=== PATIENT | female | born 2000 | race American Indian/Alaskan Native ===

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

== ENCOUNTER 2021-12-27 00:23 | Emergency (ER) | payer OTHER ==
[2021-12-27 00:42] VITALS: BP 139/93; PULSE 110
[2021-12-27 01:56] LABS: ANION GAP 17.2 mEq/L (7-13); CHLORIDE,CL 101 mmol/L (98-107); SODIUM,NA 138 mmol/L (136-145)
[2021-12-27 02:54] LABS: AMPHETAMINES,URINE NEGATIVE (NEGATIVE); BARBITURATES,URINE NEGATIVE (NEGATIVE); BENZODIAZEPINE,URINE NEGATIVE (NEGATIVE); MDMA (ECSTASY), URINE NEGATIVE (NEGATIVE); METHADONE,URINE NEGATIVE (NEGATIVE); METHAMPHETAMINES,URINE NEGATIVE (NEGATIVE); OPIATES,URINE NEGATIVE (NEGATIVE); OXYCODONE,URINE NEGATIVE (NEGATIVE); PHENCYCLIDINE,URINE NEGATIVE (NEGATIVE); TCA,URINE NEGATIVE (NEGATIVE)
== END 2021-12-27 02:00 | disposition home or self-care (01) ==
LOC: DL.ED 00:23
DX: O99.281 Endocrine, nutritional and metabolic diseases complicating pregnancy, first trimester (principal); E87.6 Hypokalemia; Z3A.01 Less than 8 weeks gestation of pregnancy
CPT/HCPCS: 36415; 80053; 80305-QW; 80307; 81003; 84703; 85025; 86592; 86762; 86803; 86850; 86900; 86901; 87340; 87389; 99283; 99284

== ENCOUNTER 2022-01-29 00:34 | Emergency (ER) | payer MEDICAID, OTHER ==
[2022-01-29 01:09] VITALS: BP 118/78; PULSE 102
[2022-01-29 01:21] LABS: ANION GAP 12.6 mEq/L (7-13); CHLORIDE,CL 100 mmol/L (98-107); SODIUM,NA 134 mmol/L (136-145)
[2022-01-29 01:31] LABS: CORONAVIRUS COVID-19 NAA NEGATIVE (NEGATIVE)
== END 2022-01-29 01:53 | disposition home or self-care (01) ==
LOC: DL.ED 00:34
DX: O99.512 Diseases of the respiratory system complicating pregnancy, second trimester (principal); J06.9 Acute upper respiratory infection, unspecified; Z87.891 Personal history of nicotine dependence; Z3A.20 20 weeks gestation of pregnancy; Z20.822 Contact with and (suspected) exposure to COVID-19
CPT/HCPCS: 0240U; 36415; 80053; 84443; 85027; 86308; 99283

== ENCOUNTER 2022-04-22 00:03 | Inpatient (IN) | payer MEDICAID, OTHER ==
[~2022-04-22 00:03] MED LIST: Acetaminophen 325 MG Tab PO PRN; Carboprost Tromethamine 250 MCG/1 ML Amp IM PRN; Lactated Ringers 1,000 ML IV ONE; Lactated Ringers 1,000 ML IV SCH; Lidocaine 1% 30 ML SDV INJECT PRN; Methylergonovine 0.2 MG/1 ML Amp IM PRN; Misoprostol 25 MCG (1/4 of 100 MCG) Tab VAG PRN; Misoprostol 400 MCG (4 X 100 MCG TAB) RECTAL PRN; Misoprostol 50 MCG (1/2 of 100 MCG) Tab VAG ONE; Ondansetron 4 MG/2 ML SDV IVPUSH PRN; Oxytocin/Normal Saline 30 UNIT/500 ML BAG IV SCH; Sodium Chloride 0.9% 10 ML Syringe FLUSH PRN; Tranexamic Acid 1,000 MG in Sodium Chloride 0.9% 100 ML IV PRN
[2022-04-22] MEDS: Sodium Chloride 0.9% 10 ML Syringe FLUSH SCH ×3 (01:43→23:05)
[2022-04-22] MEDS ORDERED: fentaNYL 100 MCG/2 ML SDV ONE (07:34)
[2022-04-22] MEDS ORDERED: fentaNYL 100 MCG/2 ML SDV IVPUSH STA (07:40)
[2022-04-22] MEDS: Lactated Ringers 1,000 ML IV SCH ×2 (08:30→11:30)
[2022-04-22] MEDS ORDERED: Zolpidem 5 MG Tab PO PRN (11:19)
[2022-04-22] MEDS ORDERED: Oxytocin 10 Units/1 ML SDV IM PRN (11:19)
[2022-04-22] MEDS ORDERED: Simethicone 80 MG Tab.Chew PO PRN (11:19)
[2022-04-22] MEDS ORDERED: Sodium Chloride 0.9% 10 ML Syringe FLUSH PRN (11:19)
[2022-04-22] MEDS ORDERED: Benzocaine/Menthol 20%-0.5% Spray 78 GM Cannister TOP PRN (11:19)
[2022-04-22] MEDS: Ibuprofen 800 MG Tab PO PRN (17:24)
[2022-04-22] MEDS: Docusate Sodium 100 MG Cap PO PRN (20:56)
[2022-04-23] MEDS: Ferrous Sulfate 325 MG Tab PO SCH (17:11)
[2022-04-23] MEDS: Docusate Sodium 100 MG Cap PO PRN (17:12)
[2022-04-23] MEDS: Ibuprofen 800 MG Tab PO PRN (17:12)
[2022-04-23] MEDS: Prenatal Multivitamin with Calcium/Folic Acid/Iron Tab PO SCH (17:12)
[2022-04-23] MEDS: Sodium Chloride 0.9% 10 ML Syringe FLUSH SCH (18:04)
[2022-04-24] MEDS: Docusate Sodium 100 MG Cap PO PRN (09:27)
[2022-04-24] MEDS: Ferrous Sulfate 325 MG Tab PO SCH (09:27)
[2022-04-24] MEDS: Prenatal Multivitamin with Calcium/Folic Acid/Iron Tab PO SCH (09:27)
[2022-04-24] MEDS: Ibuprofen 800 MG Tab PO PRN (09:27)
[2022-04-24 09:43] VITALS: BP 124/78; PULSE 86
[2022-04-24] MEDS ORDERED: Morphine PF 1 MG/ML Amp ITHECAL ONE (11:44)
== END 2022-04-24 11:45 | disposition home or self-care (01) | DRG 806 ==
LOC: EDSTATUS 00:03 → DL.OB 00:04
PROVIDERS: ADMIT Family Medicine; ATTEND Family Medicine
PROC: 10E0XZZ Delivery of Products of Conception, External Approach (ICD-10-PCS; principal; 2022-04-22)
PROC: 10907ZC Drainage of Amniotic Fluid, Therapeutic from Products of Conception, Via Natural or Artificial Opening (ICD-10-PCS; 2022-04-22)
PROC: 0HQ9XZZ Repair Perineum Skin, External Approach (ICD-10-PCS; 2022-04-22)
DX: O99.02 Anemia complicating childbirth (principal); D62 Acute posthemorrhagic anemia; Z37.0 Single live birth; Z3A.39 39 weeks gestation of pregnancy; O70.0 First degree perineal laceration during delivery; Z20.822 Contact with and (suspected) exposure to COVID-19
CPT/HCPCS: 36415; 51701; 59025; 59409; 62320; 85027; A9270-GY; J2274; J2590; J3010; J7120; U0002

== ENCOUNTER 2024-09-27 22:23 | Inpatient (IN) | payer MEDICAID ==
[2024-09-27] MEDS ORDERED: Tranexamic Acid 1,000 MG in Sodium Chloride 0.9% 100 ML IV PRN (22:55)
[2024-09-27] MEDS ORDERED: Misoprostol 100 MCG Tab RECTAL PRN (22:55)
[2024-09-27] MEDS ORDERED: Methylergonovine 0.2 MG/1 ML Amp IM PRN (22:55)
[2024-09-27] MEDS ORDERED: Carboprost Tromethamine 250 MCG/1 ML Amp IM PRN (22:55)
[2024-09-27] MEDS ORDERED: Ondansetron 4 MG/2 ML SDV IVPUSH PRN (22:55)
[2024-09-27] MEDS ORDERED: Sodium Chloride 0.9% 10 ML Syringe FLUSH PRN (22:55)
[2024-09-27] MEDS: Lactated Ringers 1,000 ML IV SCH (23:00)
[2024-09-27] MEDS ORDERED: Ondansetron 4 MG/2 ML SDV IV ONE (23:00)
[2024-09-27] MEDS ORDERED: Bupivacaine 0.25% 10 ML SDV NERVRT ONE (23:00)
[2024-09-27] MEDS ORDERED: Ketorolac 30 MG/ML SDV IVPUSH ONE (23:00)
[2024-09-27] MEDS ORDERED: fentaNYL 100 MCG/2 ML SDV EPIDUR ONE (23:00)
[2024-09-27] MEDS ORDERED: Ropivacaine 100 ML EPIDUR ONE (23:00)
[2024-09-27 23:05] LABS: HEMOGLOBIN 8.7 g/dL (12.0-16.0); MEAN CORPUSCULAR HEMOGLOBIN 20.8 pg (27.0-34.0); MEAN CORPUSCULAR VOLUME 69.4 fL (80-100); RED BLOOD CELL COUNT 4.18 10^6/uL (4.2-5.4); WHITE BLOOD CELL COUNT,WBC 9.8 10^3/uL (5.0-10.0)
[2024-09-27] MEDS ORDERED: Phenylephrine HCl In 0.9% NaCl 1 MG/10 ML Syringe IVPUSH PRN (23:22)
[2024-09-27] MEDS ORDERED: ePHEDrine 50 MG/ML SDV IVPUSH PRN (23:22)
[2024-09-27] MEDS ORDERED: Ropivacaine 200 MG in Premix Bag 1 BAG EPIDUR SCH (23:30)
[2024-09-27] MEDS: Penicillin G Potassium 5 MILLUNITS in Sodium Chloride 0.9% 100 ML IV ONE (23:57)
[2024-09-28] MEDS: Oxytocin/Normal Saline 30 UNIT/500 ML BAG IV SCH (00:36)
[2024-09-28] MEDS ORDERED: Sodium Chloride 0.9% 10 ML Syringe FLUSH PRN (00:45)
[2024-09-28] MEDS ORDERED: Oxytocin 10 Units/1 ML SDV IM PRN (00:45)
[2024-09-28] MEDS ORDERED: Simethicone 80 MG Tab.Chew PO PRN (00:45)
[2024-09-28] MEDS: Witch Hazel Medicated Pads 100/Jar TOP PRN (01:16)
[2024-09-28] MEDS: Ibuprofen 800 MG Tab PO SCH (01:16)
[2024-09-28] MEDS: Benzocaine/Menthol 20%-0.5% Spray 78 GM Cannister TOP PRN (01:16)
[2024-09-28] MEDS: Lidocaine 1% 30 ML SDV INJECT ONE (04:43)
[2024-09-28] MEDS: Lactated Ringers 1,000 ML IV ONE (04:43)
[2024-09-28] MEDS: Docusate Sodium 100 MG Cap PO PRN (08:37)
[2024-09-28] MEDS: Prenatal Multivitamin with Calcium/Folic Acid/Iron Tab PO SCH (08:37)
[2024-09-28] MEDS: Ferrous Sulfate 325 MG Tab PO SCH (08:37)
[2024-09-28 09:58] LABS: HEMATOCRIT 25.2 % (37.0-47.0); HEMOGLOBIN 7.4 g/dL (12.0-16.0); MEAN CORPUSCULAR HEMOGLOBIN 20.7 pg (27.0-34.0); MEAN CORPUSCULAR HGB CONC 29.4 g/dL (33.0-35.0); MEAN CORPUSCULAR VOLUME 70.6 fL (80-100); RED BLOOD CELL COUNT 3.57 10^6/uL (4.2-5.4)
[2024-09-28] MEDS: Acetaminophen 325 MG Tab PO PRN (15:23)
[2024-09-29] MEDS: Measles, Mumps & Rubella Vaccine 0.5 ML SDV SUBCUT ONE (10:51)
[2024-09-29] MEDS: Diphtheria,Pertussis(Acell),Tetanus Vaccine 0.5 ML Syringe IM ONE (10:51)
[2024-09-29 13:51] VITALS: BP 128/67; PULSE 82
== END 2024-09-29 12:30 | disposition home or self-care (01) | DRG 806 ==
LOC: DL.OBCHECK 22:23 → DL.OB 23:01 → OBSVTOIN 09-28 00:33
PROVIDERS: ADMIT Family Medicine; ATTEND Family Medicine
PROC: 10E0XZZ Delivery of Products of Conception, External Approach (ICD-10-PCS; principal; 2024-09-28)
PROC: 0HQ9XZZ Repair Perineum Skin, External Approach (ICD-10-PCS; 2024-09-28)
PROC: 10907ZC Drainage of Amniotic Fluid, Therapeutic from Products of Conception, Via Natural or Artificial Opening (ICD-10-PCS; 2024-09-28)
PROC: 3E0R3BZ Introduction of Anesthetic Agent into Spinal Canal, Percutaneous Approach (ICD-10-PCS; 2024-09-28)
PROC: 00HU33Z Insertion of Infusion Device into Spinal Canal, Percutaneous Approach (ICD-10-PCS; 2024-09-28)
DX: O77.0 Labor and delivery complicated by meconium in amniotic fluid (principal); D62 Acute posthemorrhagic anemia; Z37.0 Single live birth; Z3A.39 39 weeks gestation of pregnancy; Z90.89 Acquired absence of other organs; O99.02 Anemia complicating childbirth; Z28.39 Other underimmunization status; O70.0 First degree perineal laceration during delivery; O66.3 Obstructed labor due to other abnormalities of fetus
CPT/HCPCS: 01967; 36415; 51701; 59409; 85027; A9270-GY; C1729; J0665; J1885; J2405; J2590; J2795; J3010; J7120

== ENCOUNTER 2025-03-06 11:22 | Emergency (ER) | payer MEDICAID ==
[2025-03-06 11:43] VITALS: BP 126/67; PULSE 132
== END 2025-03-06 13:16 | disposition home or self-care (01) ==
LOC: DL.ED 11:22
DX: S93.601A Unspecified sprain of right foot, initial encounter (principal); W01.0XXA Fall on same level from slipping, tripping and stumbling without subsequent striking against object, initial encounter
CPT/HCPCS: 73600-RT; 73620-RT; 99282; 99283